=== PATIENT | male | born 1980 | race Two or more races ===

== ENCOUNTER 2016-07-18 22:18 | Emergency (ER) | payer OTHER ==
[~2016-07-18] VITALS: Ht 177.8 cm; Wt 95.3 kg
--- NOTE | 2016-07-18 22:20 | NUR ---
pt bib pd to er bed 11. here for medical clearance prior to booking. c/o rib pain. on monitor w/ stable vitals. nad noted. awaiting md mitchell.
--- NOTE | 2016-07-18 22:57 | NUR ---
lydia almanza at bedside for eval.
[2016-07-18] MEDS ORDERED: IBUPROFEN 600 MG TABLET PO ONE (23:02)
[2016-07-18] MEDS: IBUPROFEN 600 MG TABLET PO ONE (23:08)
[2016-07-18 23:16] VITALS: BP 121/62
--- NOTE | 2016-07-18 23:16 | NUR ---
ok to book. d/c to pd in stable condition.
== END 2016-07-18 23:17 | disposition home or self-care (01) ==
LOC: ER 22:20
DX: S20.212A Contusion of left front wall of thorax, initial encounter (principal); X58.XXXA Exposure to other specified factors, initial encounter; Y92.89 Other specified places as the place of occurrence of the external cause; Y93.02 Activity, running; Y99.8 Other external cause status
CPT/HCPCS: 99283; A4606; Z7610